=== PATIENT | male | born 1950 | race African-American/Black ===

== ENCOUNTER 2016-08-17 12:37 | Inpatient (IN) | payer MEDICARE, OTHER ==
[~2016-08-17] VITALS: Ht 172.7 cm; Wt 87.1 kg
[2016-08-17 13:20] VITALS: BP 120/89
[2016-08-17] MEDS ORDERED: DEXTROSE 50% WATER 50ML SYRINGE IV PRN ×2 (14:00→18:45)
[2016-08-17] MEDS ORDERED: CLONIDINE 0.1MG TABLET PO PRN (14:00)
[2016-08-17] MEDS ORDERED: ONDANSETRON HCL 4MG/2ML VIAL IV PRN (14:00)
[2016-08-17] MEDS ORDERED: SODIUM CHLORIDE 0.9% 1,000 ML IV SCH (14:15)
[2016-08-17] MEDS: ACETAMINOPHEN 325MG TABLET PO PRN (14:15)
[2016-08-17 15:07] VITALS: BP 112/80
[2016-08-17 15:32] LABS: HEMATOCRIT. 45.1 % (42.0-52.0); MEAN CORPUSCULAR VOLUME 81.3 fL (80.0-94.0); MEAN PLATELET VOLUME 9.5 fl (7.4-10.4); PLATELET 144 x1000/uL (130-400); RED BLOOD CELL COUNT 5.54 mill/uL (4.7-6.1); RED CELL DISTRIBUTION WIDTH 14.8 % (11.6-14.6)
[2016-08-17] MEDS ORDERED: ALPR1TAB2 PO (15:37)
[2016-08-17 16:00] VITALS: BP 112/80
[2016-08-17] MEDS ORDERED: BISMUTH SUBSALICYLATE 262 MG/15 ML-120ML BOTTLE PO PRN (16:00)
[2016-08-17 16:07] LABS: CARBON DIOXIDE 24 mEq/L (21-32); CHLORIDE 104 mEq/L (98-107)
[2016-08-17 16:08] LABS: PLATELET ESTIMATE NORMAL
[2016-08-17] MEDS: PIPERACILLIN/TAZ 3.375G PREMIX 50 ML IV SCH (17:29)
[2016-08-17] MEDS: BLOOD SUGAR DIAGNOSTIC STRIP TEST SCH ×2 (17:39→21:00)
[2016-08-17 17:44] LABS: CLARITY URINE TURBID (CLEAR); COLOR URINE DARK YELLOW (YELLOW); GLUCOSE URINE NEGATIVE (NEGATIVE); KETONES URINE TRACE (NEGATIVE); LEUKOCYTE ESTERASE URINE 1+ (NEGATIVE); NITRITE URINE NEGATIVE (NEGATIVE); OCCULT BLOOD URINE 2+ (NEGATIVE); PROTEIN URINE 2+ (NEGATIVE); SPECIFIC GRAVITY URINE 1.029 (1.005-1.030)
[2016-08-17] MEDS ORDERED: INSULIN LISPRO 100 UNITS/ML SUBCUT SCH (17:50)
[2016-08-17] MEDS: FAMOTIDINE 20MG/2ML VIAL IV SCH (18:19)
[2016-08-17] MEDS: METRONIDAZOLE 500 MG PREMIX 100 ML IV SCH (18:19)
[2016-08-17] MEDS ORDERED: SODIUM CHLORIDE 0.9% 1,000 ML IV NR (18:45)
[2016-08-17 20:00] VITALS: BP 114/75
[2016-08-17] MEDS: SODIUM CHL 0.9% + KCL 20MEQ/L 1,000 ML IV SCH (20:08)
[2016-08-17] MEDS: INSULIN LISPRO 100 UNITS/ML SUBCUT SCH (22:10)
[2016-08-18] VITALS: BP 131/102
[2016-08-18] MEDS: PIPERACILLIN/TAZ 3.375G PREMIX 50 ML IV SCH ×4 (00:58→21:58)
[2016-08-18] MEDS: METRONIDAZOLE 500 MG PREMIX 100 ML IV SCH ×4 (00:58→21:58)
[2016-08-18] MEDS: SODIUM CHL 0.9% + KCL 20MEQ/L 1,000 ML IV SCH ×3 (03:21→21:58)
[2016-08-18 04:00] VITALS: BP 132/96
[2016-08-18] MEDS: BLOOD SUGAR DIAGNOSTIC STRIP TEST SCH ×4 (06:07→21:50)
[2016-08-18 07:00] LABS: HEMATOCRIT. 45.2 % (42.0-52.0); HEMOGLOBIN. 14.9 g/dL (14.0-18.0); MEAN CORPUSCULAR VOLUME 82.1 fL (80.0-94.0); MEAN PLATELET VOLUME 9.7 fl (7.4-10.4); PLATELET 158 x1000/uL (130-400); RED BLOOD CELL COUNT 5.51 mill/uL (4.7-6.1); RED CELL DISTRIBUTION WIDTH 14.8 % (11.6-14.6)
[2016-08-18 08:00] VITALS: BP 112/74
[2016-08-18] MEDS: FAMOTIDINE 20MG/2ML VIAL IV SCH (08:02)
[2016-08-18] MEDS: INSULIN LISPRO 100 UNITS/ML SUBCUT SCH ×4 (08:13→21:59)
[2016-08-18 08:57] LABS: BG BASE EXCESS -2.3 mmol/L (-2.0-2.0); BG CARBOXYHEMOGLOBIN 1.1 % (0.5-1.5); BG DEOXYHEMOGLOBIN 1.8 % (0.0-5.0); BG FRACTION INSPIRED OXYGEN 28; BG OXYGEN SATURATION 98.2 % (92.0-98.5); BG OXYHEMOGLOBIN 97.1 % (94.0-97.0); BG PCO2 41.2 mmHg (35.0-45.0); BG PH 7.364 (7.350-7.450); BG PO2 113.1 mmHg (75.0-100.0); BG SAMPLE SITE RIGHT RADIAL; BG TOTAL HEMOGLOBIN 14.6 g/dL (12.0-18.0); BG VENT MODE NASAL CANNULA
[2016-08-18] MEDS ORDERED: POTASSIUM CHLORIDE 20MEQ TABLET SR PO NR (10:30)
[2016-08-18 12:00] VITALS: BP 118/84
[2016-08-18] MEDS: COLESEVELAM HCL 625MG TABLET PO SCH (12:08)
[2016-08-18] MEDS: INSULIN DETEMIR UD 100 UNITS/ML SYR SUBCUT SCH (12:09)
[2016-08-18 12:59] LABS: PLATELET ESTIMATE NORMAL
[2016-08-18] MEDS: CEFTRIAXONE 1 G PREMIX 50 ML IV SCH (14:10)
[2016-08-18 16:00] VITALS: BP 132/87
[2016-08-18 20:00] VITALS: BP 103/74
[2016-08-19] VITALS: BP 109/84
[2016-08-19] MEDS: SODIUM CHL 0.9% + KCL 20MEQ/L 1,000 ML IV SCH (03:30)
[2016-08-19 04:00] VITALS: BP 136/88
[2016-08-19 05:36] LABS: HEMOGLOBIN. 14.3 g/dL (14.0-18.0); MEAN CORPUSCULAR HEMOGLOBIN 26.7 pg (28.0-32.0); MEAN CORPUSCULAR VOLUME 82.3 fL (80.0-94.0); MEAN PLATELET VOLUME 9.5 fl (7.4-10.4); PLATELET 161 x1000/uL (130-400); RED BLOOD CELL COUNT 5.35 mill/uL (4.7-6.1); RED CELL DISTRIBUTION WIDTH 14.8 % (11.6-14.6)
[2016-08-19] MEDS: BLOOD SUGAR DIAGNOSTIC STRIP TEST SCH ×4 (07:40→21:02)
[2016-08-19 08:00] VITALS: BP 147/99
[2016-08-19] MEDS: COLESEVELAM HCL 625MG TABLET PO SCH (08:08)
[2016-08-19] MEDS: ACETAMINOPHEN 325MG TABLET PO PRN (08:08)
[2016-08-19] MEDS: FAMOTIDINE 20MG/2ML VIAL IV SCH (08:10)
[2016-08-19] MEDS: INSULIN LISPRO 100 UNITS/ML SUBCUT SCH ×4 (08:11→21:10)
[2016-08-19] MEDS: METRONIDAZOLE 500 MG PREMIX 100 ML IV SCH (08:11)
[2016-08-19] MEDS ORDERED: POTASSIUM CHLORIDE 20MEQ TABLET SR PO NR (08:45)
[2016-08-19] MEDS: ALPRAZOLAM 0.25 MG TABLET PO PRN ×2 (10:57→22:58)
[2016-08-19 10:58] LABS: PLATELET ESTIMATE NORMAL
[2016-08-19] MEDS: PIPERACILLIN/TAZ 3.375G PREMIX 50 ML IV SCH ×3 (10:59→23:53)
[2016-08-19] MEDS: INSULIN DETEMIR UD 100 UNITS/ML SYR SUBCUT SCH (11:02)
[2016-08-19] MEDS: CEFTRIAXONE 1 G PREMIX 50 ML IV SCH (11:49)
[2016-08-19] MEDS: SODIUM CHL 0.45% + KCL 20MEQ/L 1,000 ML IV SCH ×2 (11:49→23:59)
[2016-08-19 12:00] VITALS: BP 128/77
[2016-08-19] MEDS: CHLORHEXIDINE GLUCONATE 0.12% MOUTHWASH UDC SSP SCH ×2 (13:29→17:45)
[2016-08-19 16:00] VITALS: BP 146/102
[2016-08-19 20:11] VITALS: BP 146/98
[2016-08-20] VITALS: BP 145/96
[2016-08-20] MEDS: TEMAZEPAM 15MG CAPSULE PO PRN ×2 (01:31→21:24)
[2016-08-20 04:00] VITALS: BP 156/100
[2016-08-20] MEDS: BLOOD SUGAR DIAGNOSTIC STRIP TEST SCH ×4 (05:59→21:18)
[2016-08-20 06:09] LABS: BASOPHILS % 0.8 % (0.0-2.0); EOSINOPHILS % 0.9 % (0.0-5.0); HEMATOCRIT. 44.2 % (42.0-52.0); HEMOGLOBIN. 14.6 g/dL (14.0-18.0); LYMPHOCYTES % 11.3 % (20.0-50.0); MEAN CORPUSCULAR VOLUME 81.6 fL (80.0-94.0); MEAN PLATELET VOLUME 9.2 fl (7.4-10.4); MONOCYTES % 16.7 % (2.0-8.0); NEUTROPHILS % 70.3 % (40.0-76.0); PLATELET 172 x1000/uL (130-400); RED BLOOD CELL COUNT 5.41 mill/uL (4.7-6.1); RED CELL DISTRIBUTION WIDTH 14.7 % (11.6-14.6)
[2016-08-20 06:33] LABS: CARBON DIOXIDE 21 mEq/L (21-32); CHLORIDE 111 mEq/L (98-107)
[2016-08-20 08:00] VITALS: BP 160/111
[2016-08-20] MEDS: ALPRAZOLAM 0.25 MG TABLET PO PRN ×2 (09:04→16:13)
[2016-08-20] MEDS: LACTOBACILLUS GG CAPSULE PO SCH (09:04)
[2016-08-20] MEDS: FAMOTIDINE 20MG/2ML VIAL IV SCH (09:04)
[2016-08-20] MEDS: COLESEVELAM HCL 625MG TABLET PO SCH (09:04)
[2016-08-20] MEDS: INSULIN LISPRO 100 UNITS/ML SUBCUT SCH ×4 (09:09→21:26)
[2016-08-20] MEDS: CHLORHEXIDINE GLUCONATE 0.12% MOUTHWASH UDC SSP SCH ×3 (09:10→16:14)
[2016-08-20] MEDS: PIPERACILLIN/TAZ 3.375G PREMIX 50 ML IV SCH ×3 (09:10→23:55)
[2016-08-20] MEDS: INSULIN DETEMIR UD 100 UNITS/ML SYR SUBCUT SCH (11:05)
[2016-08-20 12:00] VITALS: BP 148/96
[2016-08-20] MEDS: CEFTRIAXONE 1 G PREMIX 50 ML IV SCH (12:13)
[2016-08-20 16:00] VITALS: BP 163/112
[2016-08-20] MEDS: LOSARTAN POTASSIUM 100 MG TABLET PO SCH (16:14)
[2016-08-20] MEDS: HYDROCORTISONE ACETATE 25MG SUPP PR SCH ×2 (16:59→21:00)
[2016-08-20 20:10] VITALS: BP 134/108
[2016-08-20] MEDS: METOPROLOL TARTRATE 50MG TABLET PO SCH (21:18)
[2016-08-21] VITALS: BP 134/83
[2016-08-21] MEDS: ALPRAZOLAM 0.25 MG TABLET PO PRN (03:42)
[2016-08-21 04:00] VITALS: BP 135/85
[2016-08-21 06:07] LABS: HEMATOCRIT. 43.3 % (42.0-52.0); HEMOGLOBIN. 14.3 g/dL (14.0-18.0); MEAN CORPUSCULAR HEMOGLOBIN 26.8 pg (28.0-32.0); MEAN CORPUSCULAR VOLUME 81.1 fL (80.0-94.0); PLATELET 201 x1000/uL (130-400); RED BLOOD CELL COUNT 5.35 mill/uL (4.7-6.1); RED CELL DISTRIBUTION WIDTH 14.6 % (11.6-14.6)
[2016-08-21] MEDS: BLOOD SUGAR DIAGNOSTIC STRIP TEST SCH ×2 (06:08→12:40)
[2016-08-21 08:01] VITALS: BP 139/85
[2016-08-21] MEDS: PIPERACILLIN/TAZ 3.375G PREMIX 50 ML IV SCH ×2 (09:23→15:40)
[2016-08-21] MEDS: LACTOBACILLUS GG CAPSULE PO SCH (09:23)
[2016-08-21] MEDS: METOPROLOL TARTRATE 50MG TABLET PO SCH (09:24)
[2016-08-21] MEDS: LOSARTAN POTASSIUM 100 MG TABLET PO SCH (09:24)
[2016-08-21] MEDS: COLESEVELAM HCL 625MG TABLET PO SCH (09:25)
[2016-08-21] MEDS: FAMOTIDINE 20MG/2ML VIAL IV SCH (09:25)
[2016-08-21] MEDS: HYDROCORTISONE ACETATE 25MG SUPP PR SCH (09:25)
[2016-08-21] MEDS: INSULIN LISPRO 100 UNITS/ML SUBCUT SCH ×2 (09:28→14:28)
[2016-08-21] MEDS: CHLORHEXIDINE GLUCONATE 0.12% MOUTHWASH UDC SSP SCH ×2 (09:41→14:27)
[2016-08-21 10:17] LABS: ATYPICAL LYMPHOCYTES 2; PLATELET ESTIMATE NORMAL
[2016-08-21] MEDS: CEFTRIAXONE 1 G PREMIX 50 ML IV SCH (10:51)
[2016-08-21] MEDS: INSULIN DETEMIR UD 100 UNITS/ML SYR SUBCUT SCH (10:52)
[2016-08-21 12:00] VITALS: BP 132/80
[2016-08-21 16:00] VITALS: BP 140/69
[2016-08-21 16:40] VITALS: BP 140/69
== END 2016-08-21 18:10 | disposition home or self-care (01) | DRG 871 ==
LOC: 6EST 12:37 → 7WST 14:40
PROVIDERS: ADMIT Internal Medicine; ATTEND Internal Medicine
DX: A41.9 Sepsis, unspecified organism (principal); N17.0 Acute kidney failure with tubular necrosis; G93.40 Encephalopathy, unspecified; N39.0 Urinary tract infection, site not specified; E11.9 Type 2 diabetes mellitus without complications; E86.0 Dehydration; I10 Essential (primary) hypertension; R19.7 Diarrhea, unspecified; I25.10 Atherosclerotic heart disease of native coronary artery without angina pectoris; J44.9 Chronic obstructive pulmonary disease, unspecified; N28.1 Cyst of kidney, acquired; N28.89 Other specified disorders of kidney and ureter; N40.0 Benign prostatic hyperplasia without lower urinary tract symptoms; I25.2 Old myocardial infarction; Z79.899 Other long term (current) drug therapy; Z79.4 Long term (current) use of insulin
CPT/HCPCS: 36415; 36600; 71010; 74176; 80048; 80053; 81001; 82375; 82805; 82962; 83605; 83615; 83735; 85025; 87015; 87040; 87045; 87086; 87427; 87449; 87493; 93005; 93306; C1893; J0696; J1815; J2543; J3480; J3490; J7030; J7050